=== PATIENT | female | born 1980 | race Caucasian/White ===

== ENCOUNTER → 2023-12-25 15:00 | Outpatient (REF) | payer BC, SELFPAY | LOC: RCS 15:00 | PROVIDERS: ATTENDING PHYSICIAN Internal Medicine Cardiovascular Disease | DX: I51.7 Cardiomegaly (principal) | CPT/HCPCS: 93306; 93356 ==

== ENCOUNTER → 2023-12-31 14:52 | Outpatient (REF) | payer BC, SELFPAY | LOC: HWRAD 14:52 | PROVIDERS: ATTENDING PHYSICIAN Obstetrics & Gynecology Gynecologic Oncology | DX: C50.411 Malignant neoplasm of upper-outer quadrant of right female breast (principal); R19.00 Intra-abdominal and pelvic swelling, mass and lump, unspecified site | CPT/HCPCS: 71260; 74177; Q9967 ==

== ENCOUNTER → 2024-01-16 10:14 | Outpatient (REF) | payer BC, SELFPAY | LOC: HWRAD 10:14 | PROVIDERS: ATTENDING PHYSICIAN Obstetrics & Gynecology Gynecologic Oncology | DX: C50.411 Malignant neoplasm of upper-outer quadrant of right female breast (principal); R19.00 Intra-abdominal and pelvic swelling, mass and lump, unspecified site | CPT/HCPCS: 76830; 76856 ==

== ENCOUNTER → 2024-01-21 10:23 | Outpatient (REF) | payer BC, SELFPAY ==
[2024-01-21 11:31] LABS: % Eosinophils 2.6 % (0-6); % Immature Granulocytes 0.2 % (0-0.5); % Lymphocytes 36.2 % (20.5-51.1); % Monocytes 6.7 % (1.7-9.3); % Neutrophils 53.3 % (42.2-75.2); Absolute Eosinophils 0.1 10^3/uL (0-0.7); Absolute Lymphocytes 1.5 10^3/uL (1.2-3.4); Absolute Monocytes 0.3 10^3/uL (0.1-0.6); Absolute Neutrophils 2.2 10^3/uL (1.4-6.5); Hematocrit 37.4 % (37.0-47.0); Hemoglobin 13.1 g/dL (12.0-16.0); Mean Corpuscular Hgb 30.6 pg (27.0-31.0); Mean Corpuscular Volume 87.4 fL (81.0-99.0); Mean Platelet Volume 8.4 fL (7.4-10.4); Nucleated Red Blood Cells % 0 %; Platelet Count 219 10^3/uL (130-400); Red Blood Cell Count 4.28 10^6/uL (4.20-5.40); Red Cell Dist. Width 11.9 % (11.5-14.5); White Blood Cell Count 4.2 10^3/uL (4.8-10.8)
[2024-01-21 12:10] LABS: ALT (SGPT) 23 U/L (0-35); AST (SGOT) 27 U/L (14-36); Albumin 4.7 g/dl (3.5-5.0); Alkaline Phosphatase 83 U/L (38-126); Blood Urea Nitrogen 19 mg/dl (7-17); Calcium 9.9 mg/dl (8.4-10.2); Carbon Dioxide 26 mmol/L (22-30); Chloride 101 mmol/L (98-107); Glucose 90 mg/dl (70-99); Potassium 3.8 mmol/L (3.5-5.1); Sodium 138 mmol/L (135-145); Total Bilirubin 0.4 mg/dl (0.2-1.3); Total Protein 7.5 g/dl (6.3-8.2); eGFR > 60.00
== END ==
LOC: REG 10:23
PROVIDERS: ATTENDING PHYSICIAN Internal Medicine Hematology & Oncology
DX: C50.411 Malignant neoplasm of upper-outer quadrant of right female breast (principal)
CPT/HCPCS: 36415; 80053; 82248; 85025; 86300

== ENCOUNTER 2024-02-10 06:32 | Day surgery (SDC) | payer BC, SELFPAY ==
[2024-02-10] VITALS (11 sets, daily range): BP systolic 104–117; BP diastolic 50–75; BMI 25.5
[2024-02-10] MEDS: NEURONTIN 300 MG PO (09:20)
[2024-02-10] MEDS: CELEBREX 200 MG PO (09:21)
[2024-02-10] MEDS: TYLENOL 1000 MG PO (09:21)
[2024-02-10] MEDS: NORMOSOL-R 1000 IV (09:21)
[2024-02-10] MEDS: HEPARIN 5000 UNITS SC (10:56)
[2024-02-10] MEDS: ZOFRAN 4 MG IV (15:33)
== END 2024-02-10 17:35 | disposition home or self-care (01) ==
LOC: SDS 06:32
PROVIDERS: ATTENDING PHYSICIAN Obstetrics & Gynecology Gynecologic Oncology
DX: N85.8 Other specified noninflammatory disorders of uterus (principal); C50.911 Malignant neoplasm of unspecified site of right female breast; Z17.0 Estrogen receptor positive status [ER+]
CPT/HCPCS: 58571; 88307; 86850; 86900; 86901

== ENCOUNTER → 2024-04-30 08:39 | Outpatient (REF) | payer BC, SELFPAY ==
[2024-04-30 09:27] LABS: % Basophils 0.9 % (0-2); % Eosinophils 2.8 % (0-6); % Immature Granulocytes 0.5 % (0-0.5); % Lymphocytes 36.4 % (20.5-51.1); % Monocytes 7.5 % (1.7-9.3); % Neutrophils 51.9 % (42.2-75.2); Absolute Eosinophils 0.1 10^3/uL (0-0.7); Absolute Lymphocytes 1.6 10^3/uL (1.2-3.4); Absolute Monocytes 0.3 10^3/uL (0.1-0.6); Absolute Neutrophils 2.2 10^3/uL (1.4-6.5); Hematocrit 40.4 % (37.0-47.0); Hemoglobin 14.1 g/dL (12.0-16.0); Mean Corp Hgb Conc. 34.9 g/dL (33.0-37.0); Mean Corpuscular Hgb 30.3 pg (27.0-31.0); Mean Corpuscular Volume 86.7 fL (81.0-99.0); Mean Platelet Volume 8.4 fL (7.4-10.4); Nucleated Red Blood Cells % 0 %; Platelet Count 223 10^3/uL (130-400); Red Blood Cell Count 4.66 10^6/uL (4.20-5.40); Red Cell Dist. Width 11.9 % (11.5-14.5); White Blood Cell Count 4.3 10^3/uL (4.8-10.8)
[2024-04-30 09:46] LABS: ALT (SGPT) 26 U/L (0-35); AST (SGOT) 32 U/L (14-36); Albumin 4.9 g/dl (3.5-5.0); Alkaline Phosphatase 87 U/L (38-126); Blood Urea Nitrogen 11 mg/dl (7-17); Carbon Dioxide 28 mmol/L (22-30); Chloride 101 mmol/L (98-107); Glucose 92 mg/dl (70-99); Sodium 138 mmol/L (135-145); Total Bilirubin 0.8 mg/dl (0.2-1.3); Total Protein 7.7 g/dl (6.3-8.2); eGFR > 60.00
[2024-04-30 10:25] LABS: Vitamin D, 25-OH*** 34.8 ng/mL (30-80)
[2024-05-01 23:18] LABS: CA 27-29 14.4 U/mL (<=39.0)
== END ==
LOC: REG 08:39
PROVIDERS: ATTENDING PHYSICIAN Nurse Practitioner Adult Health
DX: C50.411 Malignant neoplasm of upper-outer quadrant of right female breast (principal); R19.00 Intra-abdominal and pelvic swelling, mass and lump, unspecified site
CPT/HCPCS: 36415; 80053; 82306; 85025; 86300

== ENCOUNTER 2024-06-02 16:54 | Outpatient (RCR) | payer BC, SELFPAY | END 2024-06-02 23:59 | disposition home or self-care (01) | LOC: RPT 16:54 | PROVIDERS: ATTENDING PHYSICIAN Nurse Practitioner Adult Health; FAMILY PHYSICIAN Physician Assistant Medical | DX: I97.2 Postmastectomy lymphedema syndrome (principal); C50.411 Malignant neoplasm of upper-outer quadrant of right female breast; R19.00 Intra-abdominal and pelvic swelling, mass and lump, unspecified site; L90.5 Scar conditions and fibrosis of skin; M62.81 Muscle weakness (generalized); R29.3 Abnormal posture | CPT/HCPCS: 97110; 97140; 97163; 97164; 97535 ==

== ENCOUNTER 2024-07-01 15:59 | Outpatient (RCR) | payer BC, SELFPAY | END 2024-07-01 23:59 | disposition home or self-care (01) | LOC: RPT 15:59 | PROVIDERS: ATTENDING PHYSICIAN Nurse Practitioner Adult Health; FAMILY PHYSICIAN Physician Assistant Medical | DX: I97.2 Postmastectomy lymphedema syndrome (principal); C50.411 Malignant neoplasm of upper-outer quadrant of right female breast; R19.00 Intra-abdominal and pelvic swelling, mass and lump, unspecified site; L90.5 Scar conditions and fibrosis of skin; Z73.6 Limitation of activities due to disability; M62.81 Muscle weakness (generalized); R29.3 Abnormal posture | CPT/HCPCS: 97110; 97112; 97140; 97530; 97535 ==

== ENCOUNTER 2024-07-21 14:01 | Outpatient (RCR) | payer BC, SELFPAY | END 2024-07-21 23:59 | disposition home or self-care (01) | LOC: RPT 14:01 | PROVIDERS: ATTENDING PHYSICIAN Nurse Practitioner Adult Health; FAMILY PHYSICIAN Physician Assistant Medical | DX: I97.2 Postmastectomy lymphedema syndrome (principal); C50.411 Malignant neoplasm of upper-outer quadrant of right female breast; R19.00 Intra-abdominal and pelvic swelling, mass and lump, unspecified site; L90.5 Scar conditions and fibrosis of skin; Z73.6 Limitation of activities due to disability; M62.81 Muscle weakness (generalized); R29.3 Abnormal posture | CPT/HCPCS: 97110; 97112; 97140 ==

== ENCOUNTER 2024-08-03 14:01 | Outpatient (RCR) | payer BC, SELFPAY | END 2024-08-03 23:59 | disposition home or self-care (01) | LOC: RPT 14:01 | PROVIDERS: ATTENDING PHYSICIAN Nurse Practitioner Adult Health; FAMILY PHYSICIAN Physician Assistant Medical | DX: I97.2 Postmastectomy lymphedema syndrome (principal); C50.411 Malignant neoplasm of upper-outer quadrant of right female breast; R19.00 Intra-abdominal and pelvic swelling, mass and lump, unspecified site; L90.5 Scar conditions and fibrosis of skin; N39.3 Stress incontinence (female) (male); Z73.6 Limitation of activities due to disability; M62.81 Muscle weakness (generalized); R29.3 Abnormal posture | CPT/HCPCS: 97164; 97530; 97535 ==

== ENCOUNTER → 2024-08-13 10:38 | Outpatient (REF) | payer BC, SELFPAY ==
[2024-08-13 11:30] LABS: % Basophils 0.7 % (0-2); % Immature Granulocytes 0.2 % (0-0.5); % Lymphocytes 35.9 % (20.5-51.1); % Monocytes 6.3 % (1.7-9.3); % Neutrophils 54.9 % (42.2-75.2); Absolute Eosinophils 0.1 10^3/uL (0-0.7); Absolute Lymphocytes 1.7 10^3/uL (1.2-3.4); Absolute Monocytes 0.3 10^3/uL (0.1-0.6); Absolute Neutrophils 2.5 10^3/uL (1.4-6.5); Hematocrit 38.4 % (37.0-47.0); Hemoglobin 13.6 g/dL (12.0-16.0); Mean Corp Hgb Conc. 35.4 g/dL (33.0-37.0); Mean Corpuscular Hgb 29.8 pg (27.0-31.0); Mean Corpuscular Volume 84.2 fL (81.0-99.0); Nucleated Red Blood Cells % 0 %; Platelet Count 230 10^3/uL (130-400); Red Blood Cell Count 4.56 10^6/uL (4.20-5.40); Red Cell Dist. Width 11.8 % (11.5-14.5); White Blood Cell Count 4.6 10^3/uL (4.8-10.8)
[2024-08-13 13:17] LABS: ALT (SGPT) 59 U/L (0-35); AST (SGOT) 89 U/L (14-36); Albumin 4.8 g/dl (3.5-5.0); Alkaline Phosphatase 72 U/L (38-126); Blood Urea Nitrogen 17 mg/dl (7-17); Carbon Dioxide 28 mmol/L (22-30); Chloride 102 mmol/L (98-107); Glucose 81 mg/dl (70-99); Potassium 4.1 mmol/L (3.5-5.1); Sodium 141 mmol/L (135-145); Total Bilirubin 0.4 mg/dl (0.2-1.3); Total Protein 7.1 g/dl (6.3-8.2); eGFR > 60.00
[2024-08-13 13:22] LABS: Vitamin D, 25-OH*** 52.1 ng/mL (30-80)
[2024-08-14 23:01] LABS: CA 27-29 21.9 U/mL (<=39.0)
== END ==
LOC: REG 10:38
PROVIDERS: ATTENDING PHYSICIAN Internal Medicine Hematology & Oncology; FAMILY PHYSICIAN Family Medicine; REFERRING PHYSICIAN Nurse Practitioner Adult Health
DX: C50.411 Malignant neoplasm of upper-outer quadrant of right female breast (principal); R19.00 Intra-abdominal and pelvic swelling, mass and lump, unspecified site
CPT/HCPCS: 36415; 80053; 82306; 85025; 86300

== ENCOUNTER → 2024-09-21 10:54 | Outpatient (REF) | payer BC, SELFPAY ==
[2024-09-21 12:26] LABS: ALT (SGPT) 21 U/L (0-35); AST (SGOT) 25 U/L (14-36); Albumin 4.7 g/dl (3.5-5.0); Alkaline Phosphatase 62 U/L (38-126); Blood Urea Nitrogen 12 mg/dl (7-17); Calcium 9.6 mg/dl (8.4-10.2); Carbon Dioxide 28 mmol/L (22-30); Chloride 102 mmol/L (98-107); Glucose 87 mg/dl (70-99); HDL Cholesterol 82 mg/dl; Iron 109 ug/dl (37-170); LDL Cholesterol, Calculated 82 mg/dl; Potassium 4.5 mmol/L (3.5-5.1); Sodium 142 mmol/L (135-145); Total Bilirubin 0.2 mg/dl (0.2-1.3); Total Cholesterol 178 mg/dl (50-199); Total Protein 7.3 g/dl (6.3-8.2); Triglyceride 72 mg/dl (10-149); Very Low Density Lipoprotein 14 mg/dl (0-30); eGFR > 60.00
[2024-09-21 12:36] LABS: Percent Saturation 33 % (20-50); Total Iron Binding Capacity 322 ug/dl (265-497)
[2024-09-21 13:00] LABS: Ferritin 18.9 ng/ml (6.24-137)
[2024-09-21 13:32] LABS: Folate 7.9 ng/ml (2.76-20); Vitamin B12 530 pg/ml (239-931)
[2024-09-22 23:47] LABS: CA 27-29 18.5 U/mL (<=39.0)
== END ==
LOC: REG 10:54
PROVIDERS: ATTENDING PHYSICIAN Nurse Practitioner Adult Health; FAMILY PHYSICIAN Family Medicine
DX: C50.411 Malignant neoplasm of upper-outer quadrant of right female breast (principal); R19.00 Intra-abdominal and pelvic swelling, mass and lump, unspecified site
CPT/HCPCS: 36415; 80053; 80061; 82607; 82728; 82746; 83540; 83550; 86300

== ENCOUNTER → 2024-12-28 08:33 | Outpatient (REF) | payer OTHER, SELFPAY ==
[2024-12-28 09:39] LABS: % Eosinophils 2.5 % (0-6); % Immature Granulocytes 0.4 % (0-0.5); % Lymphocytes 39.5 % (20.5-51.1); % Monocytes 6.8 % (1.7-9.3); % Neutrophils 49.8 % (42.2-75.2); Absolute Basophils 0.1 10^3/uL (0-0.2); Absolute Eosinophils 0.1 10^3/uL (0-0.7); Absolute Monocytes 0.4 10^3/uL (0.1-0.6); Absolute Neutrophils 2.6 10^3/uL (1.4-6.5); Hematocrit 39.9 % (37.0-47.0); Hemoglobin 13.5 g/dL (12.0-16.0); Mean Corp Hgb Conc. 33.8 g/dL (33.0-37.0); Mean Corpuscular Hgb 29.9 pg (27.0-31.0); Mean Corpuscular Volume 88.5 fL (81.0-99.0); Mean Platelet Volume 8.4 fL (7.4-10.4); Nucleated Red Blood Cells % 0 %; Platelet Count 227 10^3/uL (130-400); Red Blood Cell Count 4.51 10^6/uL (4.20-5.40); Red Cell Dist. Width 11.9 % (11.5-14.5); White Blood Cell Count 5.2 10^3/uL (4.8-10.8)
[2024-12-28 10:10] LABS: ALT (SGPT) 23 U/L (0-35); AST (SGOT) 28 U/L (14-36); Albumin 4.8 g/dl (3.5-5.0); Alkaline Phosphatase 66 U/L (38-126); Blood Urea Nitrogen 16 mg/dl (7-17); Calcium 9.7 mg/dl (8.4-10.2); Carbon Dioxide 28 mmol/L (22-30); Chloride 102 mmol/L (98-107); Glucose 97 mg/dl (70-99); HDL Cholesterol 80 mg/dl; LDL Cholesterol, Calculated 183 mg/dl; Potassium 4.3 mmol/L (3.5-5.1); Sodium 139 mmol/L (135-145); Total Bilirubin 0.7 mg/dl (0.2-1.3); Total Cholesterol 282 mg/dl (50-199); Total Protein 7.3 g/dl (6.3-8.2); Triglyceride 98 mg/dl (10-149); Very Low Density Lipoprotein 19 mg/dl (0-30); eGFR > 60.00
== END ==
LOC: REG 08:33
PROVIDERS: ATTENDING PHYSICIAN Internal Medicine Hematology & Oncology; FAMILY PHYSICIAN Family Medicine
DX: C50.411 Malignant neoplasm of upper-outer quadrant of right female breast (principal); R19.00 Intra-abdominal and pelvic swelling, mass and lump, unspecified site
CPT/HCPCS: 36415; 80053; 80061; 82248; 85025

== ENCOUNTER → 2025-04-04 12:23 | Outpatient (REF) | payer OTHER, SELFPAY ==
[2025-04-04 13:16] LABS: % Basophils 0.9 % (0-2); % Eosinophils 1.6 % (0-6); % Immature Granulocytes 0.2 % (0-0.5); % Lymphocytes 36.7 % (20.5-51.1); % Neutrophils 54.6 % (42.2-75.2); Absolute Basophils 0.1 10^3/uL (0-0.2); Absolute Eosinophils 0.1 10^3/uL (0-0.7); Absolute Monocytes 0.3 10^3/uL (0.1-0.6); Hematocrit 40.1 % (37.0-47.0); Hemoglobin 14.1 g/dL (12.0-16.0); Mean Corp Hgb Conc. 35.2 g/dL (33.0-37.0); Mean Corpuscular Hgb 30.3 pg (27.0-31.0); Mean Corpuscular Volume 86.2 fL (81.0-99.0); Mean Platelet Volume 8.6 fL (7.4-10.4); Nucleated Red Blood Cells % 0 %; Platelet Count 242 10^3/uL (130-400); Red Blood Cell Count 4.65 10^6/uL (4.20-5.40); Red Cell Dist. Width 11.9 % (11.5-14.5); White Blood Cell Count 5.5 10^3/uL (4.8-10.8)
[2025-04-04 13:57] LABS: ALT (SGPT) 24 U/L (0-35); AST (SGOT) 27 U/L (14-36); Albumin 5.1 g/dl (3.5-5.0); Alkaline Phosphatase 71 U/L (38-126); Blood Urea Nitrogen 11 mg/dl (7-17); Calcium 9.5 mg/dl (8.4-10.2); Carbon Dioxide 25 mmol/L (22-30); Chloride 104 mmol/L (98-107); Glucose 100 mg/dl (70-99); HDL Cholesterol 67 mg/dl; LDL Cholesterol, Calculated 178 mg/dl; Sodium 139 mmol/L (135-145); Total Bilirubin 0.7 mg/dl (0.2-1.3); Total Cholesterol 262 mg/dl (50-199); Total Protein 7.8 g/dl (6.3-8.2); Triglyceride 85 mg/dl (10-149); Very Low Density Lipoprotein 17 mg/dl (0-30); eGFR > 60.00
[2025-04-07 01:46] LABS: CA 27-29 23.8 U/mL (<=39.0)
== END ==
LOC: REG 12:23
PROVIDERS: ATTENDING PHYSICIAN Nurse Practitioner Adult Health
DX: C50.411 Malignant neoplasm of upper-outer quadrant of right female breast (principal); R19.00 Intra-abdominal and pelvic swelling, mass and lump, unspecified site
CPT/HCPCS: 36415; 80053; 80061; 85025; 86300

== ENCOUNTER → 2025-07-11 11:04 | Outpatient (REF) | payer OTHER, SELFPAY ==
[2025-07-11 11:38] LABS: Hematocrit 39.4 % (37.0-47.0); Hemoglobin 13.5 g/dL (12.0-16.0); Mean Corp Hgb Conc. 34.3 g/dL (33.0-37.0); Mean Corpuscular Volume 87.2 fL (81.0-99.0); Nucleated Red Blood Cells % 0 %; Platelet Count 231 10^3/uL (130-400); Red Cell Dist. Width 12.2 % (11.5-14.5)
[2025-07-11 12:10] LABS: ALT (SGPT) 22 U/L (0-35); AST (SGOT) 26 U/L (14-36); Albumin 4.8 g/dl (3.5-5.0); Alkaline Phosphatase 67 U/L (38-126); Blood Urea Nitrogen 14 mg/dl (7-17); Calcium 9.8 mg/dl (8.4-10.2); Carbon Dioxide 27 mmol/L (22-30); Chloride 103 mmol/L (98-107); Glucose 94 mg/dl (70-99); HDL Cholesterol 76 mg/dl; LDL Cholesterol, Calculated 200 mg/dl; Potassium 4.3 mmol/L (3.5-5.1); Sodium 135 mmol/L (135-145); Total Protein 7.6 g/dl (6.3-8.2); Very Low Density Lipoprotein 20 mg/dl (0-30); eGFR > 60.00
[2025-07-11 12:21] LABS: Vitamin D, 25-OH*** 53.4 ng/mL (30-80)
[2025-07-14 04:23] LABS: CA 27-29 26.2 U/mL (<=39.0)
== END ==
LOC: REG 11:04
PROVIDERS: ATTENDING PHYSICIAN Nurse Practitioner Adult Health; REFERRING PHYSICIAN Internal Medicine Hematology & Oncology
DX: C50.411 Malignant neoplasm of upper-outer quadrant of right female breast (principal); R19.00 Intra-abdominal and pelvic swelling, mass and lump, unspecified site
CPT/HCPCS: 36415; 80053; 80061; 82306; 85025; 86300